=== PATIENT | female | born 1995 | race African-American/Black ===

== ENCOUNTER 2017-02-01 04:07 | Inpatient (IN) | payer OTHER ==
[~2017-02-01] VITALS: Ht 152.4 cm; Wt 83.5 kg
[2017-02-01] VITALS (29 sets, daily range): BP systolic 116–156; BP diastolic 58–100
[~2017-02-01 04:07] MED LIST: BENADRYL A12.5 MG/5 PO; CHILDREN'S160 MG/53 PO
[2017-02-01] MEDS ORDERED: PRENATAL TABLE1 EAC3 PO (04:54)
[2017-02-01 06:53] LABS: BASOPHIL (%) 0.3 % (0-1); BASOPHIL COUNT 0.1 K/uL (0-0.1); EOSINOPHIL (%) 0.1 % (0-5); HEMATOCRIT 31.5 % (36.0-46.0); HEMOGLOBIN 10.8 G/DL (11.9-15.5); IMMATURE GRANULOCYTE (%) 0.5 % (0.0-0.7); LYMPHOCYTE (%) 8.6 % (15-42); LYMPHOCYTE COUNT 1.7 K/uL (1.0-2.8); MCH 29.2 PG (29.0-34.0); MCHC 34.3 G/DL (30.0-36.0); MCV 85.1 FL (83-99); MONOCYTE (%) 7.2 % (3-12); MONOCYTE COUNT 1.4 K/uL (0-0.8); NEUTROPHIL (%) 83.3 % (45-76); NEUTROPHIL COUNT 16.5 K/uL (1.8-6.4); PLATELET COUNT 226 K/uL (156-360); RBC DIS.WIDTH-CV 14.1 % (11.8-14.6); WHITE BLOOD COUNT 19.7 K/uL (4.1-10.2)
[2017-02-01 07:19] LABS: Estimated Average Glucose 111 mg/dL (70-123); HEMOGLOBIN A1c (GLYCOHEMOGLOB) 5.5 % HGB (Below 5.7)
[2017-02-01 07:28] LABS: BENZODIAZEPINES, URINE SCREEN Negative (200 ng/mL)
[2017-02-01 07:39] LABS: GROUP B STREP POSITIVE (NEGATIVE)
[2017-02-01 08:04] LABS: SOURCE URINE
[2017-02-01 08:51] LABS: AMPHETAMINE NEGATIVE (500 ng/mL); BARBITURATES NEGATIVE (200 ng/mL); BENZODIAZEPINES NEGATIVE (150 ng/mL); BUPRENORPHINE NEGATIVE (10 ng/mL); COCAINE NEGATIVE (150 ng/mL); METHADONE NEGATIVE (200 ng/mL); METHAMPHETAMINE NEGATIVE (500 ng/mL); OPIATES (MORPHINE) NEGATIVE (100 ng/mL); OXYCODONE NEGATIVE (100 ng/mL); PHENCYCLIDINE NEGATIVE (25 ng/mL); PROPOXYPHENE NEGATIVE (300 ng/mL); THC CANNABINOIDS NEGATIVE (50 ng/mL); TRICYCLIC ANTIDEPRESSANTS NEGATIVE (300 ng/mL)
[2017-02-01 09:20] LABS: ALBUMIN 3.2 G/DL (3.2-4.8); CHLORIDE 105 MEQ/L (99-109); POTASSIUM 3.5 MEQ/L (3.7-5.4); SODIUM 136 MEQ/L (136-147); TOTAL BILIRUBIN 0.5 MG/DL (0.0-1.0)
[2017-02-01 09:26] LABS: ALKALINE PHOSPHATASE 135 IU/L (3-129); ALT (GPT) 8 IU/L (3-49); AST (GOT) 12 IU/L (2-34); CREATININE 0.4 MG/DL (0.6-1.3); GFR ESTIMATE (CALCULATED) > 59 mL/min/; GLUCOSE 112 mg/dL (70-99); LACTATE DEHYDROGENASE 118 IU/L (20-246); TOTAL PROTEIN 6.3 G/DL (6.4-8.3); UREA NITROGEN (BUN) 3 mg/dL (9-23)
[2017-02-01 10:02] LABS: UR CREATININE CONCENTRATION 104.9 MG/DL
[2017-02-02 06:35] LABS: BASOPHIL (%) 0.2 % (0-1); BASOPHIL COUNT 0.1 K/uL (0-0.1); EOSINOPHIL (%) 0 % (0-5); HEMATOCRIT 28.5 % (36.0-46.0); HEMOGLOBIN 9.7 G/DL (11.9-15.5); IMMATURE GRANULOCYTE (%) 1.2 % (0.0-0.7); LYMPHOCYTE (%) 9.8 % (15-42); LYMPHOCYTE COUNT 2.8 K/uL (1.0-2.8); MCH 28.9 PG (29.0-34.0); MCV 84.8 FL (83-99); MONOCYTE (%) 8.7 % (3-12); MONOCYTE COUNT 2.5 K/uL (0-0.8); NEUTROPHIL (%) 80.1 % (45-76); NEUTROPHIL COUNT 22.7 K/uL (1.8-6.4); PLATELET COUNT 245 K/uL (156-360); RBC DIS.WIDTH-CV 14.1 % (11.8-14.6); RBC DIS.WIDTH-SD 43.9 % (39-53); RED BLOOD COUNT 3.36 M/uL (3.80-5.20); WHITE BLOOD COUNT 28.4 K/uL (4.1-10.2)
[2017-02-02 07:37] VITALS: BP 110/55
[2017-02-02 11:04] LABS: CHLAMYDIA TRACHOMATIS NEGATIVE; NEISSERIA GONORRHOEAE NEGATIVE
[2017-02-02 15:01] VITALS: BP 130/74
[2017-02-02 23:12] VITALS: BP 109/73
[2017-02-03 06:55] VITALS: BP 133/81
[2017-02-03] MEDS ORDERED: IBUPROFEN800 MG PO (09:10)
[2017-02-03] MEDS ORDERED: CAMILA0.35 MG PO (09:11)
[2017-02-03] MEDS ORDERED: FERROCITE324 MG PO (09:12)
[2017-02-03 14:55] VITALS: BP 137/79
== END 2017-02-03 17:28 | disposition home or self-care (01) | DRG 774 ==
LOC: LDRP-OP → 2WEST 04:08 → LDRP-OP 03-30 12:34
PROVIDERS: Advanced Practice Midwife; Obstetrics & Gynecology
PROC: 10E0XZZ Delivery of Products of Conception, External Approach (ICD-10-PCS; principal; 2017-02-01)
PROC: 3E0S3BZ Introduction of Anesthetic Agent into Epidural Space, Percutaneous Approach (ICD-10-PCS; 2017-02-01)
DX: O99.824 Streptococcus B carrier state complicating childbirth (principal); O98.52 Other viral diseases complicating childbirth; D62 Acute posthemorrhagic anemia; Z37.0 Single live birth; Z3A.36 36 weeks gestation of pregnancy; E66.9 Obesity, unspecified; O99.214 Obesity complicating childbirth; O99.334 Smoking (tobacco) complicating childbirth; F17.210 Nicotine dependence, cigarettes, uncomplicated; O60.14X1 Preterm labor third trimester with preterm delivery third trimester, fetus 1; A59.09 Other urogenital trichomoniasis; O99.02 Anemia complicating childbirth
CPT/HCPCS: 80053; 80306 90; 82570; 83036; 83615; 84156; 84550; 85025; 87077; 87081; 87086; 87186; 87491; 87591; 87653; C1755; J0595; J0702; J2795; J3010; J7120; Q0169